=== PATIENT | female | born 2000 | race Caucasian/White ===

== ENCOUNTER 2021-11-15 23:40 | Emergency (ER) | payer OTHER ==
[~2021-11-15] VITALS: Ht 165.1 cm; Wt 90.7 kg
[2021-11-15 23:49] VITALS: BP 136/72
[2021-11-15] MEDS ORDERED: AMOXICILLIN500 M1 PO (23:57)
== END 2021-11-16 00:07 | disposition home or self-care (01) ==
LOC: M.ERS 23:40
DX: H66.92 Otitis media, unspecified, left ear (principal); H72.92 Unspecified perforation of tympanic membrane, left ear